=== PATIENT | female | born 1960 | race Hispanic/Latino ===

== ENCOUNTER 2016-12-01 00:01 | Emergency (ER) | payer OTHER ==
[~2016-12-01] VITALS: Ht 162.6 cm; Wt 62.6 kg
[~2016-12-01 00:01] MED LIST: ADVIL200 MG PO; CYCLOBENZAPRINE10 M1 PO; DULOXETINE HCL30 MG PO; ESCITALOPRAM20 MG PO; FENTANYL1 EAC2 TOP; IBUPROFEN600 M1 PO; LEVOTHYROXIN0.075 M1 PO; LISINOPRIL10 M1 PO; METHOTREXATE2.5 M1 PO; NEURONTIN800 M2 PO; ORENCIA125 MG/ML IV; PERCOCET 5-3251 EACH PO; PREDNISONE10 M2 PO; REMICADE100 MG IV/IM; TRAMADOL HYDROC50 MG PO; TRAMADOL50 MG PO
--- NOTE | 2016-12-01 01:32 | ED EYE COMPLAINT ---
History of Present Illness General Chief Complaint: Eye Problems Stated Complaint: "PER PT RT EYE CUT" Source: patient, old records Exam Limitations: no limitations Vital Signs & Intake/Output Vital Signs & Intake/Output Vital Signs Date Time Temp Pulse Resp B/P B/P Pulse O2 O2 Flow FiO2 Mean Ox Delivery Rate 12/01 0135 98.1 99 17 134/82 98 Room Air 12/01 0026 98.4 102 16 137/84 98 Room Air Room Air Allergies Uncoded Allergies: METAL (Mild, RASH 03/06/16) SOAPS AND LOTIONS (Mild, RASH 03/06/16) Reconcile Medications Cyclobenzaprine HCl 10 MG TABLET 1 TAB PO TID FIBRO/RA (Reported) Duloxetine HCl 30 MG CAPSULE.DR 1 CAP PO DAILY FIBROMYALGIA (Reported) Escitalopram Oxalate 20 MG TABLET 1 TAB PO DAILY FIBROMYALGIA (Reported) Fentanyl 1 EACH PATCH.TD72 1 PAT TOP Q3D FIBROMAYLGIA/RA (Reported) Gabapentin (Neurontin) 800 MG TABLET 1 TAB PO TID FIBROMAYLGIA/RA (Reported) Ibuprofen 600 MG TABLET 1 TAB PO TID PRN CHEST WALL PAIN with food Infliximab (Remicade) 100 MG VIAL (Unknown Dose) IV/IM Q 3-4 HRS PRN PRN RA ( Reported) Levothyroxine Sodium 75 MCG TABLET 1 TAB PO DAILY AC THYROID (Reported) Lisinopril 10 MG TABLET 1 TAB PO DAILY NEEDED B/P (Reported) Oxycodone HCl/Acetaminophen (Percocet 5-325 MG Tablet) 5 MG-325 MG TABLET 1-2 TAB PO Q6P PRN PAIN Prednisone 10 MG TABLET 2 TAB PO BID RA (Reported) TRAMADOL HCL (Tramadol Hydrochloride) 50 MG TABLET 1 TAB PO 4 TIMES/DAY PRN PAIN (Reported) Triage Note: 56yo FEMALE TO TRIAGE W/CO R EYE REDNESS. STATES SHE "[place] AND MAY HAVE BEEN SCRATCHED BY A BRANCH OR SOMETHING" Triage Nurses Notes Reviewed? 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 She complains of redness and foreign body sensation. She denies change in vision fever chills nausea vomiting diarrhea abdominal pain chest pain shortness breath headache dysuria rash. Past History Travel History Traveled to [place] past 21 day No Medical History Any Pertinent Medical History? 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 No Review of Systems Review of Systems Constitutional: Reports: no symptoms. Eyes: Reports: see HPI, foreign body sensation. Ear: Reports: no symptoms. Nose: Reports: no symptoms. Mouth: Reports: no symptoms. Throat: Reports: no symptoms. Respiratory: Reports: no symptoms. Cardiovascular: Reports: no symptoms. GI: Reports: no symptoms. Genitourinary: Reports: no symptoms. Musculoskeletal: Reports: no symptoms. Skin: Reports: no symptoms. Neurological/Psychological: Reports: no symptoms. Hematologic/Endocrine: Reports: no symptoms. Immunologic/Allergic: Reports: no symptoms. All Other Systems: Reviewed and Negative Physical Exam General Appearance: well developed/nourished, mild distress General Inspection: normal inspection Eyelid: normal inspection Conjunctiva/Sclera: normal inspection Cornea: normal inspection EOM: intact Pupil: normal accommodation, normal pupil, PERRL Anterior Chamber: normal inspection General Inspection: normal inspection Eyelid: normal inspection, everted for exam Conjunctiva/Sclera: subconjunctival hemorrhag Cornea: normal inspection, examined w/fluorescein EOM: intact Pupil: normal accommodation, normal pupil, PERRL Anterior Chamber: normal inspection Physical Exam Head: atraumatic Ears: Bilateral: canal normal, Tympanic normal. Nose: normal inspection Mouth/Throat: normal mouth inspection Neck: normal inspection, supple Cardiovascular/Respiratory: normal breath sounds, regular rate/rhythm Neurologic/Psych: awake, alert, oriented x 3, normal mood/affect Skin: intact, normal color, warm/dry Progress Differential Diagnosis: corneal abrasion, corneal foreign body, conjunctivitis Plan of Care: ophthalmology follow up Departure Departure Time of Disposition: 130 Disposition: HOME OR SELF CARE Condition: Stable Clinical Impression Primary Impression: Subconjunctival hemorrhage of right eye Referrals: BENTON GROSS,HORACE Segovia (PCP/Family) WINSTON GROSS,KEL Pascual Call for ophthalmology follow up Departure Forms: Customer Survey General Discharge Information
[2016-12-01 01:35] VITALS: BP 134/82
== END 2016-12-01 01:36 ==
LOC: ERH 00:01
DX: H11.31 Conjunctival hemorrhage, right eye (principal)

== ENCOUNTER 2017-10-19 00:20 | Emergency (ER) | payer OTHER ==
[~2017-10-19] VITALS: Ht 162.6 cm; Wt 63.5 kg
[~2017-10-19 00:20] MED LIST changes: +COLACE100 M1 PO; +CYCLOBENZAPRINE5 M2 PO; +ESCITALOPRAM OX20 MG PO; -ESCITALOPRAM20 MG PO; -LEVOTHYROXIN0.075 M1 PO; +LEVOXYL75 MCG PO; +OMEPRAZOLE20 M2 PO; +TRAMADOL HCL50 M1 PO; -TRAMADOL HYDROC50 MG PO
[2017-10-19 01:35] VITALS: BP 153/95
--- NOTE | 2017-10-19 01:57 | ED NECK/BACK PAIN COMPLAINT ---
History of Present Illness General Chief Complaint: Low Back Pain/Injury Stated Complaint: "BACK PAIN, CANT WALK" Source: patient Exam Limitations: no limitations Vital Signs & Intake/Output Vital Signs & Intake/Output Vital Signs Date Time Temp Pulse Resp B/P B/P Pulse O2 O2 Flow FiO2 Mean Ox Delivery Rate 10/19 0135 96.1 103 16 153/95 95 Room Air Room Air Allergies Uncoded Allergies: METAL (Mild, RASH 03/06/16) SOAPS AND LOTIONS (Mild, RASH 03/06/16) Reconcile Medications Cyclobenzaprine HCl 5 MG TABLET 1 TAB PO TIDPRN muscle spasm (Reported) Docusate Sodium (Colace) 100 MG CAPSULE 1 CAP PO BID CONSTIPATION Duloxetine HCl 30 MG CAPSULE.DR 1 CAP PO DAILY FIBROMYALGIA (Reported) Escitalopram Oxalate 20 MG TABLET 1 TAB PO DAILY FIBROMYALGIA (Reported) Fentanyl 1 EACH PATCH.TD72 1 PAT TOP Q3D FIBROMAYLGIA/RA (Reported) Gabapentin (Neurontin) 800 MG TABLET 1 TAB PO TID FIBROMAYLGIA/RA (Reported) Infliximab (Remicade) 100 MG VIAL (Unknown Dose) IV/IM Q 3-4 HRS PRN PRN RA ( Reported) Levothyroxine Sodium (Levoxyl) 75 MCG TABLET 1 TAB PO DAILY AC THYROID ( Reported) Lisinopril 10 MG TABLET 1 TAB PO DAILY NEEDED B/P (Reported) Omeprazole 20 MG CAPSULE.DR 1 CAP PO DAILY hiatal hernia (Reported) Oxycodone HCl/Acetaminophen (Percocet 5-325 MG Tablet) 5 MG-325 MG TABLET 1-2 TAB PO Q4-6 PRN PAIN Prednisone 10 MG TABLET 2 TAB PO BID RA (Reported) Tramadol HCl 50 MG TABLET 1 TAB PO 4 TIMES/DAY PRN PAIN (Reported) Tramadol HCl (Ultram) 50 MG TABLET 1-2 TAB PO TID PRN PAIN TWENTY...[id number] Triage Note: 57YO FEMALE TO TRIAGE W/CO LOW BACK PAIN SINCE FRI. DENIES ANY FALL OR TRAUMA. STATES PAIN WORSENS W/SITTING AND STANDING. STATES SHE TOOK TORADOL AND GOT MILD RELIEF. Triage Nurses Notes Reviewed? yes Onset: Gradual Duration: day(s): Timing: recent history Quality/Severity: moderate Location: lumbar spine Radiation: upper legs Context: "IT felt worse friday morning but got better with tramadol Associated Symptoms: muscle spasm HPI: 57 yo woman presents with 2 days of lower lumbar back pain w/ muscle spasm and mild numbness in left anterior thigh, without weakness. No bowel or bladder issues. She took tramadol x 3 tabs with improvement in her pain. "I was crying in pain but the tramadol helped a lot." She is otherwise well. Past History Travel History Traveled to [place] past 21 day No Medical History Any Pertinent Medical History? 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 No Review of Systems Review of Systems Constitutional: Reports: no symptoms. Eyes: Reports: no symptoms. Ears, Nose, Throat, Mouth: Reports: no symptoms. Respiratory: Reports: no symptoms. Cardiovascular: Reports: no symptoms. Gastrointestinal/Abdominal: Reports: no symptoms. Musculoskeletal: Reports: no symptoms. Skin: Reports: no symptoms. Neurological/Psychological: Reports: no symptoms. All Other Systems: Reviewed and Negative Physical Exam Physical Exam General Appearance: well developed/nourished, mild distress Head: atraumatic Eyes: Bilateral: normal appearance. Ears, Nose, Throat, Mouth: hearing grossly normal, moist mucous membrane Neck: normal inspection, supple, full range of motion Respiratory: normal breath sounds, chest non-tender, no respiratory distress, quiet respiration, lungs clear Cardiovascular: regular rate/rhythm Gastrointestinal: normal bowel sounds, soft, non-tender Back: normal inspection, muscle spasm, no vertebral tenderness Extremities: non-tender, normal range of motion, no ligament instability Straight Leg Raising: Right: Negative. Left: Negative. Comments: slight decrease in sensation in left anterior thigh strength, dtr's intact in bilateral lower extremities. Core Measures CVA/TIA Diagnosis: No Progress Differential Diagnosis: musculoskeletal back pain, radiculopathy vs other. Plan of Care: Current Medications Sig/Antonio Start time Last Medication Dose Stop Time Status Admin Ketorolac 60 MG ONCE ONE 10/19 214 UNVr 10/19 Tromethamine 10/20 215 0206 (Toradol) Departure Departure Disposition: HOME OR SELF CARE Condition: Stable Clinical Impression Primary Impression: Back pain Referrals: Shyam GROSS,Pablo Segovia (PCP/Family) Departure Forms: Customer Survey General Discharge Information Prescriptions: Current Visit Scripts Tramadol HCl (Ultram) 1-2 TAB PO TID PRN PAIN #20 TAB TWENTY...[id number] Comments pt given toradol IM w/ rx for tramadol... pt has appointment with pain management this friday.
[2017-10-19] MEDS ORDERED: ULTRAM50 M1 PO (02:02)
[2017-11-11] MEDS ORDERED: NAPROSYN500 M1 PO (18:51)
[2017-11-11] MEDS ORDERED: LIDODERM1 EACH TOP (18:51)
[2017-11-11] MEDS ORDERED: MEDROL4 M2 PO (18:51)
[2018-01-05] MEDS ORDERED: CYCLOBENZAPRINE10 M1 PO (17:52)
[2018-01-05] MEDS ORDERED: KETOROLAC TROME10 M1 PO (18:02)
== END 2017-10-19 02:38 ==
LOC: ERH 00:20
DX: M54.5 Low back pain (principal)
CPT/HCPCS: 96372; J1885

== ENCOUNTER 2017-12-21 11:19 | Emergency (ER) | payer OTHER ==
[~2017-12-21] VITALS: Ht 162.6 cm; Wt 62.6 kg
[~2017-12-21 11:19] MED LIST changes: +LIDODERM1 EACH TOP; +MEDROL4 M2 PO; +NAPROSYN500 M1 PO; +ULTRAM50 M1 PO
[2017-12-21 11:24] VITALS: BP 146/85
--- NOTE | 2017-12-21 11:46 | ED NECK/BACK PAIN COMPLAINT ---
History of Present Illness General Chief Complaint: Low Back Pain/Injury Stated Complaint: BIBA BACK PAIN Source: patient, old records Exam Limitations: no limitations Vital Signs & Intake/Output Vital Signs & Intake/Output Vital Signs Date Time Temp Pulse Resp B/P B/P Pulse O2 O2 Flow FiO2 Mean Ox Delivery Rate 12/21 1124 98.2 114 16 146/85 98 Room Air Allergies Uncoded Allergies: METAL (Mild, RASH 03/06/16) SOAPS AND LOTIONS (Mild, RASH 03/06/16) Triage Note: PT BIBA C/C LOW BACK PAIN UPON WAKENING THIS AM. 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 PT USES FENTANYL PATCH, NAPROXEN, AND GABAPENTIN FOR SAME. MEDICATED WITH 100 MG FENTANYL IV BY SLIP COVER ESTIMATOR EN ROUTE. UPON ARRIVAL PAIN 11/23. PT STATES USED LIDODERM PATCH WITH RELIEF PREVIOUSLY. DENIES RECENT INJURY OR TRAUMA TO EXACERBATE CHRONIC PAIN. Triage Nurses Notes Reviewed? yes Onset: Gradual Duration: week(s): Timing: recent history Location: lumbar spine Radiation: upper legs HPI: 57-year-old female with history of chronic back pain, fibromyalgia brought in by ambulance complaining of low back pain worsening this morning. Patient states that she saw her specialist this week, they prescribed her tramadol and that no patch however her pain worsened this morning. Patient was medicated with IV fentanyl in route to hospital. Patient reports back pain radiates from left low back down left leg with associated numbness of left thigh. There is no trauma or inciting that prior to onset of pain. Patient denies saddle anesthesia, urinary or bowel incontinence, fevers, chills, vomiting. (Mita VIEIRA,Doris Clark) Reconcile Medications Cyclobenzaprine HCl 5 MG TABLET 1 TAB PO TIDPRN muscle spasm (Reported) Docusate Sodium (Colace) 100 MG CAPSULE 1 CAP PO BID CONSTIPATION Duloxetine HCl 30 MG CAPSULE.DR 1 CAP PO DAILY FIBROMYALGIA (Reported) Escitalopram Oxalate 20 MG TABLET 1 TAB PO DAILY FIBROMYALGIA (Reported) Fentanyl 1 EACH PATCH.TD72 1 PAT TOP Q3D FIBROMAYLGIA/RA (Reported) Gabapentin (Neurontin) 800 MG TABLET 1 TAB PO TID FIBROMAYLGIA/RA (Reported) Infliximab (Remicade) 100 MG VIAL (Unknown Dose) IV/IM Q 3-4 HRS PRN PRN RA ( Reported) Levothyroxine Sodium (Levoxyl) 75 MCG TABLET 1 TAB PO DAILY AC THYROID ( Reported) Lidocaine (Lidoderm) 5 % ADH..PATCH 1 PAT TOP DAILY PRN back pain may wear up to 12 hours Lidocaine (Lidoderm) 5 % ADH..PATCH 1 PAT TOP DAILY PRN pain may wear up to 12 hours Lisinopril 10 MG TABLET 1 TAB PO DAILY NEEDED B/P (Reported) Meloxicam (Mobic) 15 MG TABLET 1 TAB PO DAILY PRN pain Methylprednisolone. (Medrol) 4 MG TAB.DS.PK 1 DP PO AD radiculopathy 6 on day 1 then reduce by one tablet daily until gone Naproxen (Naprosyn) 500 MG TABLET 1 TAB PO BID PRN back pain Omeprazole 20 MG CAPSULE.DR 1 CAP PO DAILY hiatal hernia (Reported) Oxycodone HCl/Acetaminophen (Percocet 5-325 MG Tablet) 5 MG-325 MG TABLET 1-2 TAB PO Q4-6 PRN PAIN Prednisone 10 MG TABLET 2 TAB PO BID RA (Reported) Tramadol HCl 50 MG TABLET 1 TAB PO 4 TIMES/DAY PRN PAIN (Reported) Tramadol HCl (Ultram) 50 MG TABLET 1-2 TAB PO TID PRN PAIN TWENTY...[id number] (Abeba GROSS,Garrick) Past History Travel History Traveled to [place] past 21 day No Medical History Any Pertinent Medical History? 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 No (Doris Cunningham) Review of Systems Review of Systems Constitutional: Reports: no symptoms. Eyes: Reports: no symptoms. Ears, Nose, Throat, Mouth: Reports: no symptoms. Respiratory: Reports: no symptoms. Cardiovascular: Reports: no symptoms. Gastrointestinal/Abdominal: Reports: no symptoms. Musculoskeletal: Reports: see HPI. Skin: Reports: no symptoms. Neurological/Psychological: Reports: see HPI. All Other Systems: Reviewed and Negative (Doris Cunningham) Physical Exam Physical Exam General Appearance: well developed/nourished, no apparent distress, alert, awake Head: atraumatic, normal appearance Eyes: Bilateral: normal appearance. Ears, Nose, Throat, Mouth: hearing grossly normal Neck: normal inspection, supple, full range of motion Respiratory: no respiratory distress Peripheral Pulses: 2+ dorsalis pedis (R), 2+ dorsalis pedis (L) Back: Lumbar tenderness without deformity Extremities: left buttocks tenderness, full range of motion Neurologic/Psych: no motor/sensory deficits, awake, alert, oriented x 3, normal gait, strength 5/5 equal bilateral lower extremities Skin: intact, normal color, warm/dry Core Measures CVA/TIA Diagnosis: No (Doris Cunningham) Progress Differential Diagnosis: cauda equina syn, herniated disc, myofascial strain, sciatica, spinal cord inj, T/L spine injury, spinal abscess Plan of Care: Current Medications Sig/Antonio Start time Last Medication Dose Stop Time Status Admin Lidocaine 1 PAT ONCE ONE 12/21 1214 UNVr (Lidoderm) 12/21 1216 The patient has no urinary/bowel incontinence, no saddle anesthesia, the diagnosis of cauda equina syndrome is unlikely in this patient. She has no fevers, appears nontoxic appearing, listless suspicion for abscess. Patient's pain has been present for over one year, pain is in similar location as previous episodes of her exacerbated back pain. Patient is ambulatory here in the emergency department. According to CT SPINDLE CARVER, patient has outstanding prescription for fentanyl patch. She is also a patient of pain management, it is inappropriate for me to prescribe narcotics for this patient. I offered anti- inflammatory medication and have her she declines. Patient does request lidocaine patches which are scrubbed for her. 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 (Doris Cunningham) Departure Departure Disposition: HOME OR SELF CARE Condition: Stable Clinical Impression Primary Impression: Back pain Qualifiers: Back pain location: low back pain Chronicity: chronic Back pain laterality: left Sciatica presence: with sciatica Sciatica laterality: sciatica of left side Qualified Codes: M54.42 - Lumbago with sciatica, left side; G89.29 - Other chronic pain Secondary Impressions: Paresthesias Referrals: Shyam GROSSPablo (PCP/Family) Additional Instructions: Continue medications as prescribed by your aquatics specialist. Follow up with your specialist this week. Use lidocaine patient as prescribed for pain. Return with worsening symptoms or concerns. Please note that there might be incidental findings in your evaluation that are unrelated to the current emergency department visit. Please notify your primary care doctor about this emergency department visit in order to obtain and review all of the testing performed so that these incidental findings can be monitored as needed. If you had an x-ray performed, please understand that some fractures may not be seen on the initial set of x-rays. If your symptoms persist you might need a repeat set of x-rays to check for such a fracture. If you had a laceration evaluated, please understand that foreign bodies such as glass or wood may not be visible to the naked eye or on plain x-rays. If the wound becomes red, swollen, increasingly more painful or if there is any drainage from the wound, please have it reevaluated by a physician for the possibility of a retained foreign body. If you're unable to follow up as outlined in the discharge instructions please return to the emergency department. Thank you for choosing the [facility] Emergency Department for your care. It was a pleasure to serve you today. Departure Forms: Customer Survey General Discharge Information (Mita VIEIRA,Doris Clark) Departure Prescriptions: Current Visit Scripts Lidocaine (Lidoderm) 1 PAT TOP DAILY PRN pain #10 PAT may wear up to 12 hours Meloxicam (Mobic) 1 TAB PO DAILY PRN pain #15 TAB PA/FUSING MACHINE TENDER Co-Sign Statement Statement: ED Attending supervision documentation- I saw and evaluated the patient. I have also reviewed all the pertinent lab results and diagnostic results. I agree with the findings and the plan of care as documented in the PA's/FUSING MACHINE TENDER's documentation. x I have reviewed the ED Record and agree with the PA's/FUSING MACHINE TENDER's documentation. [] Additions or exceptions (if any) to the PAs/FUSING MACHINE TENDER's note and plan are summarized below: [] (Abeba GROSS,Garrick)
[2017-12-21] MEDS ORDERED: LIDODERM1 EACH TOP (12:15)
[2017-12-21] MEDS ORDERED: MOBIC15 M1 PO (12:35)
== END 2017-12-21 12:38 ==
LOC: ERH 11:19
DX: R20.2 Paresthesia of skin (principal); M54.5 Low back pain
CPT/HCPCS: 96374; J1885

== ENCOUNTER 2017-12-28 16:59 | Inpatient (IN) | payer OTHER ==
[~2017-12-28] VITALS: Ht 162.6 cm; Wt 64.6 kg
[~2017-12-28 16:59] MED LIST changes: +MOBIC15 M1 PO
--- NOTE | 2017-12-28 17:45 | ED ANIMAL BITE/WOUND CHECK ---
History of Present Illness General Chief Complaint: Animal/Insect Bite Stated Complaint: "BIT BY CAT ON LT ARM" Source: patient Exam Limitations: no limitations Vital Signs & Intake/Output Vital Signs & Intake/Output Vital Signs Date Time Temp Pulse Resp B/P B/P Pulse O2 O2 Flow FiO2 Mean Ox Delivery Rate 12/297 98.3 99 18 132/82 96 Room Air 12/29 1459 98.7 99 18 134/80 94 Room Air 12/29 0638 97.8 81 20 126/93 97 Room Air ED Intake and Output 12/30 0000 12/29 1200 Intake Total 770 160 Output Total Balance 770 160 Intake, IV 150 40 Intake, Oral 620 120 Number 0 Bowel Movements Allergies Uncoded Allergies: METAL (Mild, RASH 03/06/16) SOAPS AND LOTIONS (Mild, RASH 03/06/16) Reconcile Medications Cyclobenzaprine HCl (Unknown Strength) TABLET (Unknown Dose) PO TID MUSCLE SPASMS (Reported) Duloxetine HCl 20 MG CAPSULE.DR 1 CAP PO DAILY FIBROMYALGIA (Reported) Etanercept (Enbrel) 50 MG/ML (0.98 ML) PEN.INJCTR 50 MG SC QFRI RA (Reported) Fentanyl (Duragesic) 25 MCG/HOUR PATCH.TD72 1 PAT TOP Q3D FIBROMYALGIA/RA ( Reported) Gabapentin (Neurontin) 800 MG TABLET 1 TAB PO TID FIBROMAYLGIA/RA (Reported) Levothyroxine Sodium 88 MCG TABLET 1 TAB PO DAILY THYROID (Reported) Meloxicam (Mobic) 15 MG TABLET 1 TAB PO DAILY PRN pain Prednisone 20 MG TABLET 1 TAB PO DAILY STEROID (Reported) Triage Nurses Notes Reviewed? yes Injury Environment: home Is Injury an Animal Bite? Yes Animal Type: cat Context of Animal Attack: approached animal Appearance of Animal: appeared ill Severity of Attack: bitten, scratched Severity: moderate HPI: Patient is a 57-year-old female with a past medical history of chronic back pain , anemia, and hypertension who presents emergency room for concerns of approaching a neighborhood cat yesterday to pet the cat patient states that she is seen the cat on multiple occasions prior however yesterday the "off" and which she states that the cat subsequently bit her and scratched her to her left forearm and since patient has been (Anders Negrete) Past History Travel History Traveled to [place] past 21 day No Medical History Any Pertinent Medical History? see below for history Neurological: NONE EENT: NONE Cardiovascular: hypertension Respiratory: NONE Gastrointestinal: hiatal hernia Hepatic: NONE Renal: NONE Musculoskeletal: degen joint disease, fibromyalgia, RA Psychiatric: NONE Endocrine: hypothyroidism Blood Disorders: anemia Cancer(s): NONE FUR POLISHER/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: ENDOMETRIOSIS History of MRSA: No History of VRE: No History of CDIFF: No Surgical History Surgical History: laparoscopic lysis adhesions Psychosocial History What is your primary language [place] Family History Hx Contributory? No (Anders Negrete) Review of Systems Review of Systems Constitutional: Reports: no symptoms. EENTM: Reports: no symptoms. Respiratory: Reports: no symptoms. Cardiovascular: Reports: no symptoms. GI: Reports: no symptoms. Genitourinary: Reports: no symptoms. Musculoskeletal: Reports: see HPI. Skin: Reports: see HPI. Neurological/Psychological: Reports: no symptoms. Hematologic/Endocrine: Reports: no symptoms. Immunologic/Allergic: Reports: no symptoms. All Other Systems: Reviewed and Negative (Anders Negrete) Physical Exam Physical Exam General Appearance: no apparent distress, alert, comfortable Head: atraumatic Eyes: Bilateral: normal appearance. Ears, Nose, Throat: hearing grossly normal Respiratory: no respiratory distress Peripheral Pulses: 2+ radial (L) Extremities: evidence of injury Neurologic/Psych: no motor/sensory deficits, awake, alert, oriented x 3, normal gait Diagram Body: 1) Noted superficial minimal 3 mm non-gaping scratch with mild active bleeding 2) Noted circumferential swelling ecchymosis point tenderness full active range of motion in the left wrist No purulent discharge dermatomes intact (Anders Negrete) Progress Differential Diagnosis: abscess, cellulitis, joint infection, tenosysnovitis Plan of Care: Orders Procedure Date/time Status Consistent Carbohydrate 1 12/29 D Active Change service to 12/29 0940 Active Lab Add-on Test 12/29 UNK Active FingerStick- Glucose 12/29 UNK Active PHARMACY COMMUNICATION FORM 12/29 UNK Active TOTAL IRON BINDING CAPACITY 12/28 1740 Complete GLYCOSYLATED HGB 12/28 1740 Complete FOLIC ACID 12/28 1740 Complete FERRITIN 12/28 1740 Complete SERUM IRON 12/28 1740 Complete ETHANOL 12/28 1740 Complete VITAMIN B12 12/28 1740 Complete Current Medications Sig/Antonio Start time Last Medication Dose Stop Time Status Admin Insulin Aspart 0 TIDAC 12/29 1700 AC (NovoLOG) Duloxetine HCl 20 MG DAILY 12/29 09 AC 12/29 (Cymbalta) 08 Enoxaparin Sodium 40 MG DAILY 12/29 09 AC 12/29 (Lovenox) 08 Ferrous Sulfate 325 MG BID 12/29 899 AC 12/29 (Feosol) 225 Levothyroxine Sodium 0.088 MG DAILY 12/29 899 AC 12/29 (Synthroid) 08 Prednisone 20 MG DAILY 12/29 09 AC 12/29 08 Ampicillin Sodium/ 1,500 MG Q6H 12/29 08 AC 12/29 Sulbactam Sodium 2200 (Unasyn) Sodium Chloride 100 ML (Normal Saline 0.9%) Acetaminophen 1,000 MG Q8P PRN 12/29 0745 AC 12/29 (Tylenol) 1408 Gabapentin 800 MG Q8 12/28 2316 AC 12/29 (Neurontin) 2258 Cyclobenzaprine HCl 10 MG TID PRN 12/28 231 AC 12/29 (Flexeril 10MG Tab) 0829 Laboratory Tests 12/29/17 1600: CBC w Diff NO MAN DIFF REQ, RBC 3.47 L, MCV 82.0, MCH 25.5 L, MCHC 31.1 L, RDW 19.0 H, MPV 8.8, Gran % 85.6 H, Lymphocytes % 11.0 L, Monocytes % 3.3, Eosinophils % 0.1, Basophils % 0, Absolute Granulocytes 8.4 H, Absolute Lymphocytes 1.1 L, Absolute Monocytes 0.3, Absolute Eosinophils 0, Absolute Basophils 0 Patient was offered rabies vaccines and medications however she declines I discussed with her the risks of this and which she was aware Patient will be admitted for concerns of Bite and cellulitis to the left forearm wrist and hand no concerns of sepsis at this time Diagnostic Imaging: Viewed by Me: CT Scan. Radiology Impression: acute abnormality Comments: PATIENT: MICHELLE DEMARCO PRESENT AGE: 57 PATIENT ACCOUNT NO: [id number] : 56 LOCATION: [facility] ORDERING PHYSICIAN: Anders VIEIRA SERVICE DATE: 12/28/17 EXAM TYPE: CAT - CT UPPER EXT W IV CONTRAST EXAMINATION: CT UPPER EXTREMITY WITH CONTRAST, LEFT CLINICAL INFORMATION: Cat bite with left forearm and wrist swelling and pain COMPARISON: None TECHNIQUE: CT of the left distal forearm is performed following intravenous administration of 95 mL Optiray 320 iodinated contrast DLP: 353 mGy-cm FINDINGS: There is diffuse subcutaneous edema along the volar/ulnar aspect of the forearm without a focal fluid collection to indicate an abscess. No radiopaque foreign body. No underlying osseous abnormality. 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 IMPRESSION: Diffuse subcutaneous edema along the volar/ulnar aspect of the left forearm which may represent cellulitis. No abscess. No underlying osseous abnormality or radiopaque foreign body. DICTATED BY: Pancho Wilkinson MD DATE/TIME DICTATED:12/28/172000 SANITATION WORKER:DEON DATE/TIME TRANSCRIBED:12/28/172000 (Anders Negrete) Departure Departure Disposition: STILL A PATIENT Condition: Stable Clinical Impression Primary Impression: Cellulitis of left arm Secondary Impressions: Cat bite Referrals: Shyam GROSS,Pablo Segovia (PCP/Family) Departure Forms: Customer Survey General Discharge Information Admission Note Spoke With: Osiel Subramanian MD Documentation of Exam: Documentation of any treatments & extenuating circumstances including Concerns Regarding Discharge (functional status, medication knowledge or non-compliance, living conditions, etc.) that warrant an admission rather than observation: [ Patient requires IV antibiotics plastic surgery consultation repeat labs pain management] Blood cultures pending (Anders Negrete) PA/TRANSCRIBING OPERATOR HEAD Co-Sign Statement Statement: ED Attending supervision documentation- [X] I saw and evaluated the patient. I have also reviewed all the pertinent lab results and diagnostic results. I agree with the findings and the plan of care as documented in the PA's/TRANSCRIBING OPERATOR HEAD's documentation. [X] I have reviewed the ED Record and agree with the PA's/TRANSCRIBING OPERATOR HEAD's documentation. [] Additions or exceptions (if any) to the PAs/TRANSCRIBING OPERATOR HEAD's note and plan are summarized below: [NEEDS ADMISSION FOR CAT BITE CELLULITIS, ID CONSULT, PT REFUSING RABIES PROFALAXIS.] (Sudheer GROSS,Huy Segovia)
[2017-12-28 18:01] LABS: ABSOLUTE BASOPHIL COUNT 0 /CUMM (0.0-0.2); ABSOLUTE EOSINOPHIL COUNT 0 /CUMM (0.0-0.7); ABSOLUTE GRANULOCYTE CT 8.2 /CUMM (1.4-6.5); ABSOLUTE MONOCYTE COUNT 0.3 /CUMM (0.10-0.60); BASOPHIL % 0.4 % (0.0-2.0); EOSINOPHIL % 0.1 % (0-5); GRANULOCYTE % 86.2 % (42.2-75.2); HEMATOCRIT 29.1 % (37-47); MEAN CORPUSCULAR HGB 25.5 PG (27.0-31.0); MEAN CORPUSCULAR HGB CONC 31.3 G/DL (33.0-37.0); MEAN CORPUSCULAR VOLUME 81.5 FL (81.0-99.0); MEAN PLATELET VOLUME 8.1 FL (7.4-10.4); PLATELET COUNT 490 /CUMM (130-400); RBC DISTRIBUTION WIDTH 18.1 % (11.5-14.5); RED BLOOD CELL CT 3.57 /CUMM (4.20-5.40); WHITE BLOOD CELL COUNT 9.5 /CUMM (4.8-10.8)
[2017-12-28] MEDS ORDERED: PREDNISONE20 M1 PO (19:40)
[2017-12-28] MEDS ORDERED: ENBREL50 MG/1 M1 SC (19:41)
[2017-12-28] MEDS ORDERED: DULOXETINE HCL20 MG PO (19:41)
[2017-12-28] MEDS ORDERED: DURAGESIC1 EACH TOP (19:42)
[2017-12-28] MEDS ORDERED: LEVOTHYROXINE88 MCG PO (19:42)
[2017-12-28] MEDS ORDERED: CYCLOBENZAPRINE10 M1 PO (19:44)
--- NOTE | 2017-12-28 20:09 | CT SCAN REPORT ---
EXAMINATION: CT UPPER EXTREMITY WITH CONTRAST, LEFT CLINICAL INFORMATION: Cat bite with left forearm and wrist swelling and pain COMPARISON: None TECHNIQUE: CT of the left distal forearm is performed following intravenous administration of 95 mL Optiray 320 iodinated contrast DLP: 353 mGy-cm FINDINGS: There is diffuse subcutaneous edema along the volar/ulnar aspect of the forearm without a focal fluid collection to indicate an abscess. No radiopaque foreign body. No underlying osseous abnormality. 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 IMPRESSION: Diffuse subcutaneous edema along the volar/ulnar aspect of the left forearm which may represent cellulitis. No abscess. No underlying osseous abnormality or radiopaque foreign body.
--- NOTE | 2017-12-28 21:48 | History & Physical ---
DonnaDenilson 12/28/17 2147: General Information and HPI MD Statement: I have seen and personally examined MICHELLE DEMARCO and documented this H&P. The patient is a 57 year old F who presented with a patient stated chief complaint of [cat bite and arm swelling]. Source of Information: patient Exam Limitations: no limitations History of Present Illness: Patient is a 57 yo F with a PMH significant for hypertension, anemia, chronic back pain, fibromyalgia, degenerative joint disease, rheumatoid arthritis, hypothyroidism, endometriosis, hiatal hernia presents to ED with cat bites on her left forearm and scratches on her right arm leaving considerable swelling and cellulitis. The incident occurred at around 2PM yesterday. She has encountered the cat previously on multiple occassions, but this time the cat attacked her, biting and scratching in the process of getting away. The cat left a bite on her left index finger, left forearm, along with scratches up both the left and right arms. There was significant bleeding from the left index finger. The patient instantly controlled the bleeding and when she got home she cleaned the bite wound with alcohol and hydrogen peroxide, then covered the wound with Neosporin and applied a Band-Aid. The next morning the patient woke up she noticed that her left arm had increased swelling and redness than the day before. She denies any discharge from the wound. Per patient today there has been a considerable increase in the amount of swelling and a feeling of tightness in her left arm due to the swelling. She reports no real pain, no loss of motor function, no numbeness, no parathesias, no pruritis in either hand, no fever, no diaphoresis, no chills, no nausea, no vomiting, no diarrhea. Patient is unsure if the cat has been vaccinated. She did have a headache which was resolved with Toradol at the hospital. She believes her lack of pain maybe due to the amount of pain medications she takes. Allergies/Medications Allergies: Uncoded Allergies: METAL (Mild, RASH 03/06/16) SOAPS AND LOTIONS (Mild, RASH 03/06/16) Home Med list Cyclobenzaprine HCl (Unknown Strength) TABLET (Unknown Dose) PO TID MUSCLE SPASMS (Reported) Duloxetine HCl 20 MG CAPSULE.DR 1 CAP PO DAILY FIBROMYALGIA (Reported) Etanercept (Enbrel) 50 MG/ML (0.98 ML) PEN.INJCTR 50 MG SC QFRI RA (Reported) Fentanyl (Duragesic) 25 MCG/HOUR PATCH.TD72 1 PAT TOP Q3D FIBROMYALGIA/RA ( Reported) Gabapentin (Neurontin) 800 MG TABLET 1 TAB PO TID FIBROMAYLGIA/RA (Reported) Levothyroxine Sodium 88 MCG TABLET 1 TAB PO DAILY THYROID (Reported) Meloxicam (Mobic) 15 MG TABLET 1 TAB PO DAILY PRN pain Prednisone 20 MG TABLET 1 TAB PO DAILY STEROID (Reported) Past History Travel History Traveled to [place] past 21 day No Medical History Neurological: NONE EENT: NONE Cardiovascular: hypertension Respiratory: NONE Gastrointestinal: hiatal hernia Hepatic: NONE Renal: NONE Musculoskeletal: degen joint disease, fibromyalgia, RA Psychiatric: NONE Endocrine: hypothyroidism Blood Disorders: anemia Cancer(s): NONE 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/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: ENDOMETRIOSIS History of MRSA: No History of VRE: No History of CDIFF: No Tetanus Vaccine: 12/28/17 Surgical History Surgical History: laparoscopic lysis adhesions Past Family/Social History Family History Relations & Conditions if any Relation not specified for: *No pertinent family history Exam & Diagnostic Data Last 24 Hrs of Vital Signs/I&O Vital Signs Date Time Temp Pulse Resp B/P B/P Pulse O2 O2 Flow FiO2 Mean Ox Delivery Rate 12/28 2216 97.8 100 18 168/90 99 Room Air 12/28 2142 98.7 92 20 148/84 95 Room Air 12/28 1919 96 12/28 1746 98.3 104 18 154/96 98 Room Air Intake & Output 12/29 0800 07 0000 12/28 1600 Intake Total 250 Output Total Balance 250 Intake, Oral 250 Patient 142 lb Weight Weight Bed scale Measurement Method Physical Exam General Appearance Alert, Oriented X3, Cooperative, No Acute Distress Skin Temp/Moisture Exam: Warm/Dry Sepsis Skin Exam (color): Normal for Ethnicity HEENT Atraumatic, PERRLA, EOMI Neck Supple, No LAD Cardiovascular Regular Rate, Normal S1, Normal S2 Lungs Clear to Auscultation Abdomen Soft, No Tenderness Neurological Normal Speech, Strength at 5/5 X4 Ext, Sensation Intact Extremities Normal Pulses Last 24 Hrs of Labs/Randall: Laboratory Tests 12/28/17 2046: Lactic Acid Cancelled 12/28/17 1740: Anion Gap 10, Estimated GFR > 60, BUN/Creatinine Ratio 32.9 H, Glucose 335 H, Lactic Acid 1.9, Calcium 9.8, Iron 28 L, TIBC 427, Ferritin 9.8 L, Total Bilirubin 0.3, AST 21, ALT 30, Alkaline Phosphatase 92, Total Protein 6.8, Albumin 3.9, Globulin 2.9, Albumin/Globulin Ratio 1.3, Vitamin B12 602, Folate 12.3, CBC w Diff NO MAN DIFF REQ, RBC 3.57 L, MCV 81.5, MCH 25.5 L, MCHC 31.3 L, RDW 18.1 H, MPV 8.1, Gran % 86.2 H, Lymphocytes % 10.1 L, Monocytes % 3.2, Eosinophils % 0.1, Basophils % 0.4, Absolute Granulocytes 8.2 H, Absolute Lymphocytes 1.0 L, Absolute Monocytes 0.3, Absolute Eosinophils 0, Absolute Basophils 0, Serum Alcohol < 10.0 Microbiology 12/28 1755 BLOOD: Blood Culture - RECD 12/29 1739 BLOOD: Blood Culture - RECD Assessment/Plan Assessment: Vitals 98.3, HR 104, RR 18, BP 154/96 and O2 Sats 98% on Room Air Labs H&H 9.1/29.1, RDW 18.1, Plt count 490, Blood glucose 335, Normal Lactic acid and LFTs. Blood Cx pending. Problem List: 1. Cellulitis of Left Arm 2. Thrombocytosis (platelets 490, reactive vs infection) 3. Elevated Glucose (likely 2/2 to chronic steroids) 4. Anemia (chronic vs acute) 5. Chronic (RA, FM, HypoThy) Received tetanus and Clindamycin in ER - Admit patient to general medicine - IV Unasyn (ampicillin + sulbactam) - CBC - F/U blood Cx - Trend H and H - Check A1c - Novolg SSC - Accucheck - Anemia Panel (B12/Folate/Ferritin/TIBC/Iron) - Steroids 20mg - Levothyroxine - Pain management - DVT ppx - Full code As Ranked By This Provider Problem List: 1. Cat bite 2. Cellulitis of left arm 3. Paresthesias 4. Back pain Core Measures/Misc (03/02) Acute Coronary Syndrome ACS Diagnosis: No Congestive Heart Failure Congestive Heart Failure Diagnosis No Cerebrovascular Accident CVA/TIA Diagnosis: No VTE (View Protocol) VTE Risk Factors Age>40 No Mechanical VTE Prophylaxis d/t N/A MechProphylax Ordered No VTE Pharm Prophylaxis d/t NA PharmProphylax ordered Sepsis (View protocol) Sepsis Present: No If YES complete Sepsis Event Note If YES complete Sepsis Event Note Karolina Sykes MD 12/28/17 2201: Core Measures/Misc (03/02) Sepsis (View protocol) If YES complete Sepsis Event Note If YES complete Sepsis Event Note Resident Review Statement Other Findings: Ms. Demarco is a 57-year-old lady with past medical history significant for hypertension, hypothyroidism, fibromyalgia, endometriosis and rheumatoid arthritis on etanercept and prednisone presents to the ER after a cat bite yesterday afternoon. Per the patient, she was trying to pathway cath yesterday afternoon around 1-2 PM, when all of a sudden the cat bit her on her left index finger left forearm. Per the patient, she has seen that Multiple times in the past history comes to very ER daily and it looks like home. She had significant bleeding from the bite site on her index finger but stopped after she put the Band-Aid on. Denies any bleeding afterwards or any purulent discharge. She noticed mild swelling and discoloration around the bite site last night but this swelling was worse when she woke up this morning with spread to her entire left hand and and also extending up to her elbow. Reports some tightness because of the swelling but denies any pain which she thinks is because she has the fentanyl patch on and is also taking gabapentin for her fibromyalgia and rheumatoid arthritis. Denies any fever/chills, muscle weakness, numbness/tingling or loss of sensation in her left upper extremity. Reports a headache after she came to the hospital which got better with Toradol. Vitals 98.3, HR 104, RR 18, BP 154/96 and O2 Sats 98% on Room Air Labs H&H 9.1/29.1, RDW 18.1, Plt count 490, Blood glucose 335, Normal Lactic acid and LFTs. Blood Cx pending. CT of LUE with contrast showed Diffuse subcutaneous edema along the volar/ulnar aspect of the left forearm which may represent cellulitis. No abscess, underlying osseous abnormality or radiopaque foreign body was seen. Problem List; 1. Cellulitis 2/2 Cat Bite 2. Chronic Anemia likely Microcytic with elevated RDW 3. Thrombocytosis; ?? Reactive to chronic anemia 4. Elevated Blood glucose without any Hx of DM, Steroid induced?? 5. HX of RA, Fibromyalgia and hypothyroidism - Admit the Patient to gen Med Floor. - Patient was given IV clindamycin in the ER, will continue. - f/u blood Cx - Recieved tetanus vaccine in the ER. - Will give Rabies vaccine (no need of rabies Ig as she has previous hx of rabies immunization as a child), 2nd dose on day 3. - Elevated blood glucose likely secondary to Prednisone use, will check A1c. - Hx of chronic anemia, will check serum iron, ferritin, TIBC,folate and B12 levels. - Pain managment. - Continue home meds. DVT Prophylaxis; ALPS and S/C Lovenox Patient is full code. Marilynn GROSSLoris 12/29/17 0426: General Information and HPI Statement: I have seen and personally examined MICHELLE DEMARCO and documented this H&P. The patient is a 57 year old F who presented with a patient stated chief complaint of [cat bite]. Past History Medical History Cardiovascular: hypertension Gastrointestinal: hiatal hernia Musculoskeletal: degen joint disease, fibromyalgia, RA Endocrine: hypothyroidism Blood Disorders: anemia Past Family/Social History Psychosocial History Smoking Status: Never Smoked ETOH Use: denies use Illicit Drug Use: denies illicit drug use Employment History Employment Employed Review of Systems Review of Systems Constitutional: Reports: see HPI. Exam & Diagnostic Data Last 24 Hrs of Vital Signs/I&O Vital Signs Date Time Temp Pulse Resp B/P B/P Pulse O2 O2 Flow FiO2 Mean Ox Delivery Rate 12/29 2215 97.8 100 18 168/90 99 Room Air 12/28 2142 98.7 92 20 148/84 95 Room Air 12/28 1919 96 12/28 1746 98.3 104 18 154/96 98 Room Air Intake & Output 12/29 0800 12/29 0000 12/28 1600 Intake Total 250 Output Total Balance 250 Intake, Oral 250 Patient 142 lb Weight Weight Bed scale Measurement Method Physical Exam General Appearance Alert, Oriented X3, Cooperative, No Acute Distress Skin Temp/Moisture Exam: Warm/Dry Sepsis Skin Exam (color): Normal for Ethnicity HEENT Atraumatic, PERRLA, EOMI Neck Supple, No JVD, No LAD Cardiovascular Regular Rate, Normal S1, Normal S2, No Murmurs Lungs Clear to Auscultation, Normal Air Movement Abdomen Normal Bowel Sounds, Soft, No Tenderness, No Hepatospenomegaly Neurological Normal Gait, Normal Speech Extremities Normal Pulses Last 24 Hrs of Labs/Randall: Laboratory Tests 12/28/172045: Lactic Acid Cancelled 12/28/171739: Anion Gap 10, Estimated GFR > 60, BUN/Creatinine Ratio 32.9 H, Glucose 335 H, Lactic Acid 1.9, Calcium 9.8, Iron 28 L, TIBC 427, Ferritin 9.8 L, Total Bilirubin 0.3, AST 21, ALT 30, Alkaline Phosphatase 92, Total Protein 6.8, Albumin 3.9, Globulin 2.9, Albumin/Globulin Ratio 1.3, Vitamin B12 602, Folate 12.3, CBC w Diff NO MAN DIFF REQ, RBC 3.57 L, MCV 81.5, MCH 25.5 L, MCHC 31.3 L, RDW 18.1 H, MPV 8.1, Gran % 86.2 H, Lymphocytes % 10.1 L, Monocytes % 3.2, Eosinophils % 0.1, Basophils % 0.4, Absolute Granulocytes 8.2 H, Absolute Lymphocytes 1.0 L, Absolute Monocytes 0.3, Absolute Eosinophils 0, Absolute Basophils 0, Serum Alcohol < 10.0 Microbiology 12/28 1754 BLOOD: Blood Culture - RECD 12/29 1739 BLOOD: Blood Culture - RECD Core Measures/Misc (03/02) Sepsis (View protocol) If YES complete Sepsis Event Note If YES complete Sepsis Event Note Attending MD Review Statement Attending Statement Attending MD Statement: examined this patient, discuss w/resident/PA/WEIGHT CALCULATOR, agreed w/resident/PA/WEIGHT CALCULATOR, reviewed EMR data (avail), amended to note Attending Assessment/Plan: This Patient is a 57 year old female with a significant past medical history of rheumatoid arthritis, fibromyalgia, HTN, anemia went to the ED for increased swelling and redness of the left arm after being bit by a stray cat yesterday. Patient states she approached the cat in the same calm manner as she has done in the past but the cat scratched her in multiple locations on both arms and bit her left hand and left forearm. The patient states the cat punctured skin and caused her to bleed. Patient instantly controlled the bleeding, cleaned the bite wound with alcohol and hydrogen peroxide, then covered the wound with neosporin and applied a bandaid. Patient states she woke up this morning and noticed that her left forearm had increased swelling and redness from the day before. She denies any discharge from the wound. She reports since being in the hospital, the swelling has continued to increase. She reports a tightening sensation localized to the area of swelling. Patient states she is familiar with the stray cat because it lives in the neighborhood and she feeds it, however, she is unsure whether the cat has been vaccinated. Patient was given TDaP vaccine and antibiotics in the Emergency Department. Patient refused rabies vaccine in the ED, but after further education and concerns addressed, the patient agreed to Rabies vaccine administration. She was started on Unasyn for broad spectrum coverage.
[2017-12-28 22:16] VITALS: BP 168/90
[2017-12-29 06:38] VITALS: BP 126/93
--- NOTE | 2017-12-29 08:55 | PN- Housestaff ---
See Addendum Subjective Follow-up For: Cat bite Subjective: Patient seen and examined at bedside, no acute events overnight, afebrile. Patient has no c/o. States she and her feed a presumed abandoned cat, as she went to pet her the cat bit her. Denies: fever, nightsweats, chills Review of Systems Constitutional: Reports: see HPI. Objective Last 24 Hrs of Vital Signs/I&O Vital Signs Date Time Temp Pulse Resp B/P B/P Pulse O2 O2 Flow FiO2 Mean Ox Delivery Rate 12/29 0638 97.8 81 20 126/93 97 Room Air 12/28 2216 97.8 100 18 168/90 99 Room Air 12/28 2142 98.7 92 20 148/84 95 Room Air 12/28 1919 96 12/28 1746 98.3 104 18 154/96 98 Room Air Intake & Output 12/29 1600 12/29 0800 12/29 0000 Intake Total 160 250 Output Total Balance 160 250 Intake, IV 40 Intake, Oral 120 250 Patient 142 lb Weight Weight Bed scale Measurement Method Physical Exam General Appearance: Alert, Oriented X3, Cooperative Skin: Left forearm ecchymoses, swelling and indurated skin. No discharge, warmth appreciated. HEENT: Atraumatic, EOMI Neck: Supple, No LAD Cardiovascular: Regular Rate, Normal S1, Normal S2 Lungs: Clear to Auscultation, Normal Air Movement Abdomen: Normal Bowel Sounds, Soft, No Tenderness Neurological: Normal Speech, Strength at 5/5 X4 Ext, Sensation Intact Current Medications: Current Medications Sig/Antonio Start time Last Medication Dose Route Stop Time Status Admin Acetaminophen 1,000 MG Q8P PRN 12/29 0745 AC 12/29 PO 1408 Acetaminophen 650 MG Q6PRN PRN 12/28 2200 DC PO Ampicillin Sodium/ 1,500 MG Q6H 12/29 0800 AC 12/29 Sulbactam Sodium IV 1408 Sodium Chloride 100 ML Ampicillin Sodium/ 1,500 MG Q6 12/29 0109 DC 12/29 Sulbactam Sodium IV 0206 Sodium Chloride 100 ML Clindamycin 600 MG ONCE ONE 12/28 1800 DC 12/28 Dextrose/Water 50 ML IV 12/28 1829 1905 Cyclobenzaprine HCl 10 MG TID PRN 12/28 2315 AC 12/29 PO 0829 Duloxetine HCl 20 MG DAILY 12/29 899 AC 12/29 PO 0822 Enoxaparin Sodium 40 MG DAILY 12/29 899 AC 12/29 SC 0822 Ferrous Sulfate 325 MG BID 12/29 899 AC 12/29 PO 0824 Gabapentin 800 MG Q8 12/28 2316 AC 12/29 PO 1408 Ketorolac 30 MG ONCE ONE 12/28 193 DC 12/28 Tromethamine IV 12/28 Ketorolac 0 .STK-MED ONE 12/29 1915 DC Tromethamine .ROUTE Levothyroxine Sodium 0.088 MG DAILY 12/29 899 AC 12/29 PO 0822 Oxycodone/ 1 TAB Q6P PRN 12/28 2199 DC Acetaminophen PO Prednisone 20 MG DAILY 12/29 899 AC 12/29 PO 08 Rabies Vaccine 1 SYR ONCE ONE 12/28 2345 DC 12/29 IM 12/28 2345 0035 Tetanus/Diphtheria 0.5 ML ONCE ONE 12/28 174 DE 12/28 Toxoids Adsorbed IM 12/28 Last 24 Hrs of Lab/Randall Results Last 24 Hrs of Labs/Mics: Laboratory Tests 12/28/172045: Lactic Acid Cancelled 12/28/171739: Anion Gap 10, Estimated GFR > 60, BUN/Creatinine Ratio 32.9 H, Glucose 335 H, Hemoglobin A1c 7.6 H, Lactic Acid 1.9, Calcium 9.8, Iron 28 L, TIBC 427, Ferritin 9.8 L, Total Bilirubin 0.3, AST 21, ALT 30, Alkaline Phosphatase 92, Total Protein 6.8, Albumin 3.9, Globulin 2.9, Albumin/Globulin Ratio 1.3, Vitamin B12 602, Folate 12.3, CBC w Diff NO MAN DIFF REQ, RBC 3.57 L, MCV 81.5, MCH 25.5 L, MCHC 31.3 L, RDW 18.1 H, MPV 8.1, Gran % 86.2 H, Lymphocytes % 10.1 L, Monocytes % 3.2, Eosinophils % 0.1, Basophils % 0.4, Absolute Granulocytes 8.2 H, Absolute Lymphocytes 1.0 L, Absolute Monocytes 0.3, Absolute Eosinophils 0, Absolute Basophils 0, Serum Alcohol < 10.0 Microbiology 12/28 1754 BLOOD: Blood Culture - RECD 12/29 1739 BLOOD: Blood Culture - RECD Assessment/Plan Assessment: Patient is a 57 yo F with a PMH significant for hypertension, anemia, chronic back pain, fibromyalgia, degenerative joint disease, rheumatoid arthritis, hypothyroidism, endometriosis, hiatal hernia. She presented to ED on 12/28/17 with a cat bite on her left forearm which lead to swelling and cellulitis of the affected arm. Problem List: 1. Cat Bite 2. Anemia 3. Fibromyalgia 4. Rheumatoid Arthritis 5. Hypothyroidism #Cat Bite: Plan: - Continue Unasyn, can swtich to PO during discharge planning - f/u blood cultures - 2nd Rabies shot on 12/31/17 #Hypothyroidism Plan: Continue Levothyroxine 0.088mg #Anemia: H/H 9.1/29.1. Low Iron and Ferritin plan: Ferrous Sulfate 325mg #Rheumatoid Arthritis Plan: - Continue Prednisone 20mg #Fibromyalgia Plan: - Duloxetine 20mg - Gabapentin 800mg TID Problem List: 1. Cat bite Pain Ratin Pain Location: n/a Pain Goal: Remain pain free Pain Plan: Tylenol, Gabapentin Tomorrow's Labs & Rationales: none
[2017-12-29 14:59] VITALS: BP 134/80
[2017-12-29 18:46] LABS: ABSOLUTE BASOPHIL COUNT 0 /CUMM (0.0-0.2); ABSOLUTE EOSINOPHIL COUNT 0 /CUMM (0.0-0.7); ABSOLUTE GRANULOCYTE CT 8.4 /CUMM (1.4-6.5); ABSOLUTE LYMPH COUNT 1.1 /CUMM (1.2-3.4); ABSOLUTE MONOCYTE COUNT 0.3 /CUMM (0.10-0.60); BASOPHIL % 0 % (0.0-2.0); EOSINOPHIL % 0.1 % (0-5); GRANULOCYTE % 85.6 % (42.2-75.2); HEMATOCRIT 28.5 % (37-47); MEAN CORPUSCULAR HGB 25.5 PG (27.0-31.0); MEAN CORPUSCULAR HGB CONC 31.1 G/DL (33.0-37.0); MEAN PLATELET VOLUME 8.8 FL (7.4-10.4); PLATELET COUNT 496 /CUMM (130-400); RED BLOOD CELL CT 3.47 /CUMM (4.20-5.40); WHITE BLOOD CELL COUNT 9.8 /CUMM (4.8-10.8)
[2017-12-29 22:27] VITALS: BP 132/82
[2017-12-30 06:56] VITALS: BP 142/89
--- NOTE | 2017-12-30 07:33 | PN- Housestaff ---
See Addendum Subjective Follow-up For: Cat bite Subjective: No acute events overnight, afebrile. Patient states she is feeling better, denies tingling, numbness, loss of finisher hand strenght, loss of sensation in left hand and forearm. Patient states she feels ready to go home, she has a scheduled MRI tonight @ [facility] due to chronic back pain. Denies: fever, nightsweats and chills Review of Systems Constitutional: Reports: see HPI. Objective Last 24 Hrs of Vital Signs/I&O Vital Signs Date Time Temp Pulse Resp B/P B/P Pulse O2 O2 Flow FiO2 Mean Ox Delivery Rate 12/30 0656 98.4 92 18 142/89 95 12/29 2227 98.3 99 18 132/82 96 Room Air 12/29 1459 98.7 99 18 134/80 94 Room Air Intake & Output 12/30 0800 12/30 0000 12/29 1600 Intake Total 240 770 Output Total Balance 240 770 Intake, IV 150 Intake, Oral 240 620 Number 0 Bowel Movements Physical Exam General Appearance: Alert, Oriented X3, Cooperative Skin: No Rashes, Improving hematoma on left forearm, no tenderness, swelling, exudate or warmth appreciated. HEENT: Atraumatic, EOMI Neck: Supple, No LAD Cardiovascular: Regular Rate, Normal S1, Normal S2 Lungs: Clear to Auscultation, Normal Air Movement Neurological: Normal Speech, Strength at 5/5 X4 Ext, Sensation Intact Assessment/Plan Assessment: Patient is a 57 yo F with a PMH significant for hypertension, anemia, chronic back pain, fibromyalgia, degenerative joint disease, rheumatoid arthritis, hypothyroidism, endometriosis, hiatal hernia. She presented to ED on 12/28/17 with a cat bite on her left forearm which lead to swelling and cellulitis of the affected arm. Problem List: 1. Cat Bite 2. Anemia 3. Fibromyalgia 4. Rheumatoid Arthritis 5. Hypothyroidism #Cat Bite: Plan: - Completed Unasyn for 2 days, Will discharge with PO Augmentin for 5 days - f/u blood cultures - 2nd Rabies shot on 12/31/17, will come into ED on 12/31/17 #Hypothyroidism Plan: Continue Levothyroxine 0.088mg #Anemia: H/H 9.1/29.1. Low Iron and Ferritin plan: -Ferrous Sulfate 325mg #Rheumatoid Arthritis Plan: - Continue Prednisone 20mg #Fibromyalgia Plan: - Duloxetine 20mg - Gabapentin 800mg TID Will discharge patient home today with Augmentin 875/125mg for 5 days to complete 7 day course, and Ferrous Sulfate 325mg. Discusses with patient that she will have to follow up with PCP in 1 week to reassess further need of ABx or if symptoms worsen. She also needs PCP to re-evaluate elevated HbA1c, patient is currently infected, history of prednisone use, w ill provide Dietary instructions Problem List: 1. Cat bite Pain Ratin Pain Location: n/a Pain Goal: Remain pain free Pain Plan: tylenol Tomorrow's Labs & Rationales: n/a
[2017-12-30] MEDS ORDERED: FERROUS SULFAT325 M2 PO ×2 (09:21→09:24)
[2017-12-30] MEDS ORDERED: AUGMENTIN 875-1 EACH PO ×2 (09:21→09:24)
--- NOTE | 2017-12-30 09:26 | Patient Discharge Instructions ---
Discharge Instructions General Discharge Information You were seen/treated for: Cellulitis secondary cat bite Watch for these problems: Fever, swelling, discharge Special Instructions: Please complete course of Antibiotics. Follow up with PCP in 1 week for bite, and elevated HbA1C. Come to ED on 12/31/17 for Rabies Vaccine shot 2/2 Diet Continue normal diet: Yes Recommended Diet: Low Residue Activity Full Activity/No Limits: Yes Acute Coronary Syndrome Inclusion Criteria At DC or during hospital stay patient has or had the following: ACS DIAGNOSIS No Discharge Core Measures Meds if any: Prescribed or Continued at Discharge Meds if any: NOT Prescribed or Continued at Discharge Congestive Heart Failure Inclusion Criteria At DC or during hospital stay patient has or had the following: CHF DIAGNOSIS No Discharge Core Measures Meds if any: Prescribed or Continued at Discharge Meds if any: NOT Prescribed or Continued at Discharge Cerebrovascular accident Inclusion Criteria At DC or during hospital stay patient has or had the following: CVA/TIA Diagnosis No Discharge Core Measures Meds if any: Prescribed or Continued at Discharge Meds if any: NOT Prescribed or Continued at Discharge Venous thromboembolism Inclusion Criteria VTE Diagnosis No VTE Type NONE VTE Confirmed by (Test) NONE Discharge Core Measures - Per Current guidelines, there needs to be overlap - treatment for the first 5 days of Warfarin therapy. - If discharged on Warfarin prior to 5 days of - overlap therapy, the patient will need to be - assessed for post discharge needs including - *Post discharge parental anticoagulation - *Warfarin and/or parental anticoagulation education - *Follow up date to check INR post discharge At least 5 days overlap therapy as Inpatient No Meds if any: Prescribed or Continued at Discharge Note: Overlap Therapy is Warfarin and Anticoagulant Meds if any: NOT Prescribed or Continued at Discharge
[2017-12-30 14:55] VITALS: BP 144/90
--- NOTE | 2017-12-30 15:59 | Discharge Summary ---
Visit Information Visit Dates Admission Date: 12/28/17 Discharge Date: 12/30/17 Hospital Course Course Attending Physician: Thuan Munguia MD Primary Care Physician: Shyam GROSS,Pablo Segovia Hospital Course: Patient is a 57 yo F with a PMH significant for hypertension, anemia, chronic back pain, fibromyalgia, degenerative joint disease, rheumatoid arthritis, hypothyroidism, endometriosis, hiatal hernia. She presented to ED on 12/28/17 with a cat bite on her left forearm which lead to swelling and cellulitis of the affected arm. ED vitals: Temperature 98.3, heart rate 104 respiratory rate 18, blood pressure 154/96, O2 sat 98% on room air. Significant ED labs: H&H 9.1/29.1, platelet count 490, absolute granulocyte 8.2, hemoglobin A1c 7.6, iron 98, ferritin 9.8. CT imagin. Upper extremity CTIMPRESSION: Diffuse subcutaneous edema along the volar/ulnar aspect of the left forearm which may represent cellulitis. No abscess. No underlying osseous abnormality or radiopaque foreign body. Problem List: 1. Ceelulitis secondary to cat bite 2. Anemia 3. Fibromyalgia 4. Rheumatoid Arthritis 5. Hypothyroidism ED course: Patient was given one-time dose clindamycin, given tetanus Tdap vaccine, rabies vaccine 1/2, started on Unasyn and admitted to general medicine. GM course: Home medications were continued for chronic conditions. Patient was continued on Unasyn, her swelling improved, hematoma decreased in size. No signs of spreading infection. Patient was discharged on 12/30/2017, was discharged home with Augmentin for 5 days to complete a seven-day course. Patient is to follow-up with PCP in 1 week to reassess infection, she is instructed to come back to emergency department on 12/31/2017 for second rabies shot. Allergies: Uncoded Allergies: METAL (Mild, RASH 03/06/16) SOAPS AND LOTIONS (Mild, RASH 03/06/16) Disposition Summary Disposition Principal Diagnosis: Cat Bite Additional Diagnosis: Anemia Fibromyalgia Rheumatoid Arthritis Hypothyroidism Discharge Disposition: home or self care Discharge Instructions General Discharge Information Code Status: Full Code Patient's Diet: Low Carbohydrate Patient's Activity: As tolerated Follow-Up Instructions/Appts: Come to ED on 12/31/17 for 2nd Rabies Shot. F/u with PCP in 1 week to reassess need for ABx. Medications at Discharge Discharge Medications: Continue taking these medications: Gabapentin (Neurontin) 800 MG TABLET 1 Tablet ORAL THREE TIMES DAILY Qty = 90 Comments: Last Taken: 12/30/17 Time: 0500 Meloxicam (Mobic) 15 MG TABLET 1 Tablet ORAL DAILY as needed for pain Qty = 15 Comments: NOT GIVEN Prednisone (Prednisone) 20 MG TABLET 1 Tablet ORAL DAILY Comments: Last Taken: 12/30/17 Time: 0800 Etanercept (Enbrel) 50 MG/ML (0.98 ML) PEN.INJCTR 50 Milligram SC EVERY FRIDAY Qty = 392 Comments: NOT GIVEN Duloxetine HCl (Duloxetine HCl) 20 MG CAPSULE.DR 1 Capsule ORAL DAILY Qty = 30 Comments: Last Taken: 12/30/17 Time: 0800 Fentanyl (Duragesic) 25 MCG/HOUR PATCH.TD72 1 Patch On the skin Every 3 days Comments: NOT GIVEN Levothyroxine Sodium (Levothyroxine Sodium) 88 MCG TABLET 1 Tablet ORAL DAILY Qty = 30 Comments: Last Taken: 12/30/17 Time: 0800 Cyclobenzaprine HCl (Cyclobenzaprine HCl) (Unknown Strength) TABLET Unknown Dose ORAL THREE TIMES DAILY Qty = 90 Comments: Last Taken: 12/29/17 Time: 0829 Start taking the following new medications: Amoxicillin/Potassium Clav (Augmentin 875-125 Tablet) 875 MG-125 MG TABLET 1 Tablet ORAL TWICE DAILY Qty = 10 No Refills Instructions: . Comments: NOT GIVEN Ferrous Sulfate (Ferrous Sulfate) 325 MG (65 MG IRON) TABLET. 325 Milligram ORAL TWICE DAILY Qty = 30 No Refills Instructions: . Comments: Last Taken: 12/30/17 Time: 0800 Copies To: Shyam GROSS,Pablo Segovia Attending Review Statement Documenting Attending: Thuan Munguia MD Other Findings: The patient was seen and agree with the plan of care as outlined. Will complete po Augmentin course at home. Follow-up with PCP.
== END 2017-12-30 16:14 | DRG 605 ==
LOC: DELPENDDIS → ERH 16:59 → ERHI 18:28 → ERH 18:28 → 2NB 20:36 → ERH 20:36 → ERHI 20:36 → ENRESERV 21:13 → ENTRNSPT 21:46 → 2NB 22:09 → ERHI 22:09 → 2NB 22:10 → CMPTRNSPT 22:15 → 2NB 12-29 09:53 → ENPENDDIS 12-29 11:10 → ENTRNSPT 12-30 15:48 → CMPTRNSPT 12-30 15:57 → 2NB 12-30 16:14 → CMPTRNSPT 12-30 20:08
PROVIDERS: Internal Medicine; Physician Assistant
DX: S51.852A Open bite of left forearm, initial encounter (principal); L03.112 Cellulitis of left axilla; W55.01XA Bitten by cat, initial encounter; I10 Essential (primary) hypertension; E03.9 Hypothyroidism, unspecified; M06.9 Rheumatoid arthritis, unspecified; M54.9 Dorsalgia, unspecified; D64.9 Anemia, unspecified; M79.7 Fibromyalgia; Z79.52 Long term (current) use of systemic steroids; D47.3 Essential (hemorrhagic) thrombocythemia; R73.9 Hyperglycemia, unspecified; T38.0X5A Adverse effect of glucocorticoids and synthetic analogues, initial encounter
CPT/HCPCS: 2NBSP; 36592; 87040; 96374; 96375; G0480; J1650; J1885